=== PATIENT | male | born 1940 | race Two or more races ===

== ENCOUNTER → 2017-03-21 | Outpatient (REF) | payer MEDICARE, BC ==
[2017-03-21 13:43] LABS: APPEARANCE, URINE CLEAR (CLEAR); BACTERIA, URINE AUTO NEGATIVE (NEGATIVE); BILIRUBIN, URINE AUTO NEGATIVE (NEGATIVE); BLOOD, URINE BLOOD 2+ (NEGATIVE); COLOR, URINE YELLOW (YELLOW); GLUCOSE, URINE (UA) AUTO NEGATIVE (NEGATIVE); KETONE, URINE AUTO NEGATIVE (NEGATIVE); LEUKOCYTE ESTERASE, URINE AUTO NEGATIVE (NEGATIVE); MUCUS, URINE SMALL (NEGATIVE); NITRITE, URINE AUTO NEGATIVE (NEGATIVE); PROTEIN, URINE AUTO NEGATIVE (NEGATIVE); RBC, URINE AUTO 1 /HPF (0-3); SQUAMOUS EPITHELIAL CELL UR AU 0 /HPF (0-6); UROBILINOGEN, URINE AUTO 0.2 mg/dL (0.0-2.0); WBC, URINE AUTO 0 /HPF (0-3)
== END ==
LOC: M SMT 12:58
DX: R31.29 Other microscopic hematuria (principal); Z85.46 Personal history of malignant neoplasm of prostate
CPT/HCPCS: 81001

== ENCOUNTER → 2017-09-10 | Outpatient (CLI) | payer MEDICARE, BC ==
[~2017-09-10] MED LIST: METHACHOLINE KIT (J7674) INH
== END ==
LOC: M CARPUL 09:15
DX: R05 Cough (principal)
CPT/HCPCS: J7674